=== PATIENT | female | born 1980 | race Caucasian/White ===

== ENCOUNTER 2017-11-13 22:36 | Inpatient (IN) | payer MEDICAID ==
[2017-11-14] MEDS ORDERED: METHYLERGONOVINE 0.2 MG INJ IM (00:30)
[2017-11-14] MEDS ORDERED: IBUPROFEN 600 MG TAB PO (00:30)
[2017-11-14] MEDS ORDERED: LIDOCAINE 1% (MPF) 30 ML INJ INJ (00:30)
[2017-11-14] MEDS ORDERED: BUTORPHANOL 2 MG INJ IV (00:30)
[2017-11-14] MEDS ORDERED: OXYTOCIN 30 UNITS/LR 500 ML IV ×2 (00:30)
[2017-11-14] MEDS ORDERED: MISOPROSTOL 200 MCG TAB PR (00:30)
[2017-11-14] MEDS ORDERED: CARBOPROST 250 MCG INJ IM (00:30)
[2017-11-14] MEDS: LACTATED RINGER'S 1,000 ML IV ×4 (00:37→11:43)
[2017-11-14 01:24] LABS: ADD MAN DIFF? NO
[2017-11-14 01:37] LABS: WHITE BLOOD COUNT 8.5 10^3/ul (4.8-10.8)
[2017-11-14 01:37] LABS: BASOPHILS % 0.4 % (0.0-2.0); EOSINOPHILS # 0.1 10^3/ul (0.0-0.5); EOSINOPHILS % 1.7 % (0.0-7.0); HEMATOCRIT 38.1 % (37.0-47.0); HEMOGLOBIN 13.7 g/dl (12.0-16.0); LYMPHOCYTES # 1.1 10^3/ul (0.8-2.9); LYMPHOCYTES % 12.8 % (15.0-51.0); MEAN CORPUSCULAR HEMOGLOBIN 33.6 pg (29.0-33.0); MEAN CORPUSCULAR VOLUME 93.4 fl (82.0-101.0); MEAN PLATELET VOLUME 10.6 fl (7.4-10.4); MONOCYTES % 11.3 % (0.0-11.0); NEUTROPHIL # 6.2 10^3/ul (1.6-7.5); PLATELET COUNT 163 10^3/UL (140-415); RED BLOOD COUNT 4.08 10^6/ul (4.20-5.40); RED CELL DISTRIBUTION WIDTH 12.7 % (11.5-14.5)
[2017-11-14 01:51] LABS: INR 0.89; PROTIME 12.1 Sec (11.9-14.9); PT RATIO 0.9
[2017-11-14 01:52] LABS: PARTIAL THROMBOPLASTIN TIME 25.5 Sec (25.0-35.0)
[2017-11-14 02:35] LABS: HEPATITIS B SURFACE ANTIGEN NEGATIVE (NEGATIVE)
[2017-11-14] MEDS: OXYTOCIN 30 UNITS/LR 500 ML IV ×3 (08:41→17:24)
[2017-11-14] MEDS: AMPICILLIN 2 GM/NS (PMX) 100 ML IVPB (10:05)
[2017-11-14] MEDS ORDERED: ONDANSETRON 4 MG INJ IV ×2 (11:30→17:00)
[2017-11-14] MEDS ORDERED: DIPHENHYDRAMINE 50 MG INJ IV (11:30)
[2017-11-14] MEDS ORDERED: NALOXONE (0.4 MG/ML) INJ IV (11:30)
[2017-11-14] MEDS ORDERED: FENTAnyl 2MCG/ML-ROPIV 0.2% 100 ML BAG EPI (11:30)
[2017-11-14] MEDS ORDERED: AMPICILLIN 1 GM/NS (PMX) 50 ML IVPB (13:00)
[2017-11-14 15:37] LABS: RAPID PLASMA REAGIN NONREACTIVE (NR)
[2017-11-14] MEDS ORDERED: ACETAMINOPHEN 325 MG TAB PO (17:00)
[2017-11-14] MEDS ORDERED: OXYCODONE/ASPIRIN (4.88/325) TAB PO ×2 (17:00)
[2017-11-14] MEDS ORDERED: DIBUCAINE 1% 30 GM OINT PR (17:00)
[2017-11-14] MEDS ORDERED: HYDROCODONE/APAP (5/325) TAB PO ×2 (17:00)
[2017-11-14] MEDS: WITCH HAZEL/GLYCERIN PAD PR (17:23)
[2017-11-14] MEDS: BENZOCAINE 20% 56 ML SPRAY TOP (17:24)
[2017-11-14] MEDS: IBUPROFEN 600 MG TAB PO ×2 (17:24→23:35)
[2017-11-14] MEDS: LANOLIN 7 GM TUBE TOP (23:35)
[2017-11-15] MEDS: IBUPROFEN 600 MG TAB PO ×4 (05:48→23:48)
[2017-11-15] MEDS: SENNA/DOCUSATE NA (8.6MG/50MG) TAB PO ×2 (08:48→21:12)
[2017-11-15 10:32] LABS: ADD MAN DIFF? NO
[2017-11-15 10:48] LABS: BASOPHILS % 0.3 % (0.0-2.0); EOSINOPHILS # 0.1 10^3/ul (0.0-0.5); EOSINOPHILS % 0.7 % (0.0-7.0); HEMATOCRIT 38.7 % (37.0-47.0); HEMOGLOBIN 13.4 g/dl (12.0-16.0); LYMPHOCYTES # 1.2 10^3/ul (0.8-2.9); LYMPHOCYTES % 9.8 % (15.0-51.0); MEAN CORPUSCULAR HEMOGLOBIN 33.4 pg (29.0-33.0); MEAN CORPUSCULAR HGB CONC 34.6 g/dl (32.0-37.0); MEAN CORPUSCULAR VOLUME 96.5 fl (82.0-101.0); MEAN PLATELET VOLUME 10.7 fl (7.4-10.4); MONOCYTE # 0.8 10^3/ul (0.3-0.9); MONOCYTES % 6.6 % (0.0-11.0); NEUTROPHIL # 9.8 10^3/ul (1.6-7.5); NEUTROPHILS % 82.1 % (39.0-77.0); PLATELET COUNT 167 10^3/UL (140-415); RED BLOOD COUNT 4.01 10^6/ul (4.20-5.40); RED CELL DISTRIBUTION WIDTH 13.2 % (11.5-14.5)
[2017-11-15] MEDS: INFLUENZA VIRUS VACCINE 0.5 ML (DISPENSING) IM* (14:57)
[2017-11-16] MEDS: IBUPROFEN 600 MG TAB PO ×2 (05:42→12:20)
[2017-11-16] MEDS: MEASLES,MUMPS,RUBELLA VACCINE INJ SC* (09:00)
[2017-11-16] MEDS: SENNA/DOCUSATE NA (8.6MG/50MG) TAB PO (09:41)
[2017-11-16] MEDS: DIPHTH/TET/ACEL PERTUSS (ADULT) 0.5 ML VIAL IM* (15:06)
== END 2017-11-16 15:35 | disposition home or self-care (01) | DRG 775 ==
LOC: OBT 22:36 → L-D 22:39 → PP1 11-14 16:00
PROVIDERS: Obstetrics & Gynecology
PROC: 10E0XZZ Delivery of Products of Conception, External Approach (ICD-10-PCS; principal; 2017-11-14)
PROC: 0HQ9XZZ Repair Perineum Skin, External Approach (ICD-10-PCS; 2017-11-14)
DX: O70.0 First degree perineal laceration during delivery (principal); Z37.0 Single live birth; Z3A.39 39 weeks gestation of pregnancy
CPT/HCPCS: 62319; 85025; 85610; 85730; 86592; 86850; 86900; 86901; 87340; 90686; 90715